=== PATIENT | male | born 1945 | race Caucasian/White ===

== ENCOUNTER 2018-12-06 15:22 | Outpatient (CLI) | payer MEDICARE, OTHER ==
--- NOTE | 2018-12-06 16:06 | XRAY Report ---
Reason: HEART FAILURE, UNSPECIFIED Procedure Date: 12/06/2018 Accession Number: [id number] / [id number] Procedure: XRN - Chest 2 View X-Ray CPT Code: 87294 FULL RESULT: EXAM: CHEST RADIOGRAPHY EXAM DATE: 12/06/2018 03:37 PM. CLINICAL HISTORY: Heart failure, unspecified. COMPARISON: None. TECHNIQUE: 2 views. FINDINGS: Lungs/Pleura: No focal opacities evident. No pleural effusion. No pneumothorax. Normal volumes. Mediastinum: The heart size is mildly enlarged. Pulmonary vascular pattern is prominent but there is no nick edema. Mediastinal and hilar contours are within expected limits. Other: There is a dual-lead left pectoral pacing device with leads in position. IMPRESSION: Mild cardiomegaly with evidence of increased intravascular fluid volume. No edema or infiltrates. [facility]
== END 2018-12-06 15:23 | disposition home or self-care (01) ==
LOC: DI.N 15:22
PROVIDERS: ATTEND Internal Medicine
DX: I50.9 Heart failure, unspecified (principal); I51.7 Cardiomegaly
CPT/HCPCS: 71046

== ENCOUNTER 2019-01-20 13:59 | Outpatient (CLI) | payer MEDICARE, OTHER ==
[2019-01-20 14:22] LABS: BASOPHILS # (AUTO) 0.1 10^3/uL (0.0-0.1); BASOPHILS % (AUTO) 1.3 %; EOSINOPHILS # (AUTO) 0.5 10^3/uL (0.0-0.7); EOSINOPHILS % (AUTO) 4.7 %; HGB - HEMOGLOBIN 14.2 g/dL (14.0-18.0); LYMPHOCYTES # (AUTO) 1.7 10^3/uL (1.5-3.5); LYMPHOCYTES % (AUTO) 16.1 %; MEAN CORPUSCULAR HEMOGLOBIN 29.1 pg (27.0-31.0); MEAN CORPUSCULAR HGB CONC 32.9 g/dL (32.0-36.0); MEAN CORPUSCULAR VOLUME 88.5 fL (80.0-94.0); MEAN PLATELET VOLUME 7.5 fL (7.4-11.4); MONOCYTES # (AUTO) 0.8 10^3/uL (0.0-1.0); MONOCYTES % (AUTO) 7.4 %; NEUTROPHILS # (AUTO) 7.5 10^3/uL (1.5-6.6); NEUTROPHILS % (AUTO) 70.5 %; PLT - PLATELET COUNT 348 10^3/uL (130-450); RED BLOOD COUNT 4.89 10^6/uL (4.70-6.10); RED CELL DISTRIBUTION WIDTH 17.1 % (12.0-15.0); WHITE BLOOD COUNT 10.6 x10^3/uL (4.8-10.8)
[2019-01-20 14:37] LABS: ALBUMIN 4.1 g/dL (3.2-5.5); ALBUMIN/GLOBULIN RATIO 1.2 (1.0-2.2); BILIRUBIN,TOTAL 0.6 mg/dL (0.2-1.0); CALCIUM 9.7 mg/dL (8.5-10.3); CREATININE 1.3 mg/dL (0.6-1.2); TOTAL PROTEIN 7.6 g/dL (6.7-8.2)
--- NOTE | 2019-01-20 16:20 | Ultrasound Report ---
Reason: L ARM SWELLING Procedure Date: 01/20/2019 Accession Number: [id number] / [id number] Procedure: US - Duplex Ext Veins Left CPT Code: FULL RESULT: EXAM: LEFT UPPER EXTREMITY VENOUS ULTRASOUND EXAM DATE: 01/20/2019 02:37 PM. CLINICAL HISTORY: Left arm swelling COMPARISON: None. TECHNIQUE: Real-time sonographic vascular imaging was performed by the community case manager through the upper extremity utilizing both color-flow and Doppler spectral analysis. Multiple software sales representative static images were saved for review. FINDINGS: Internal Jugular Vein (IJV): Normal. Subclavian Vein (SCV): Normal. Axillary Vein : There is occlusive thrombus. Cephalic Vein (superficial vein): Normal. Basilic Vein (superficial vein): There is occlusive thrombus. Brachial Vein: Normal. Contralateral Side: Subclavian Vein: Normal. Other: None. IMPRESSION: There is deep venous thrombosis within the left axillary vein. There is superficial thrombus within the left basilic vein. [facility] The call report notification system was initiated by Dr. Miguelangel Angelo at 04:18 PM on 01/20/2019. ADDENDUM: 01/20/19 16:28 The above call report findings were discussed with Jerome Du by Dr. Miguelangel Angelo at 04:28 PM on 01/20/2019.
== END 2019-01-20 14:00 | disposition home or self-care (01) ==
LOC: DI 13:59
PROVIDERS: ATTEND Specialist
DX: I82.622 Acute embolism and thrombosis of deep veins of left upper extremity (principal); I82.612 Acute embolism and thrombosis of superficial veins of left upper extremity
CPT/HCPCS: 36415; 80053; 85025; 85379